=== PATIENT | male | born 1975 | race Caucasian/White ===

== ENCOUNTER 2021-08-10 18:10 | Emergency (ER) | payer OTHER, SELFPAY ==
--- NOTE | ~2021-08-10 | XR_ITS ---
XR ankle RT min 3V 08/10/2021 18:31 INDICATION: Inversion injury of the right ankle with pain PROCEDURE: 4 views right ankle COMPARISON: No prior studies for comparison. FINDINGS: Fracture, dislocation or subluxation is not identified. There are vascular calcifications. The soft tissues appear within normal limits. No foreign bodies are identified. IMPRESSION: 1: NO ACUTE BONE OR JOINT ABNORMALITY IDENTIFIED. Reviewed, dictated and finalized at location A. L WORKER
[2021-08-10 18:22] VITALS: BP 152/84; PULSE 91; RESP 20; TEMP 36.7; O2SAT 98
--- NOTE | 2021-08-10 18:31 | PC.NURSE ---
PT DECLINED ICE AND WHEELCHAIR TO RADIOLOGY
--- NOTE | 2021-08-10 18:32 | ED.GENADULT ---
HPI - General Adult General Chief complaint: Extremity Injury, Lower Stated complaint: right ankle injury Time Seen by Provider: 08/10/21 18:33 Source: patient Mode of arrival: ambulatory Limitations: no limitations History of Present Illness HPI narrative: 45-year-old male patient presents to the [facility] with complaints of right ankle pain. Patient states that he was up on a step stool and fell backwards twisting his right ankle and he thinks he might of had some debris fall on his ankle. Patient states he just wanted to come and get it checked out to make sure it was not broken. Patient states at rest it is okay but when he is up trying to walk on it he has pain to the anterior ankle. Related Data Home Medications Medication Instructions Recorded Confirmed albuterol sulfate 2 puff INHALATION QID PRN 08/10/21 08/10/21 amlodipine 5 mg PO DAILY 08/10/21 08/10/21 budesonide-formoterol [Symbicort] 2 puff INHALATION Q12H 08/10/21 08/10/21 glucagon [Baqsimi] 3 mg INTRANASAL ONCE 08/10/21 08/10/21 montelukast 10 mg PO DAILY 08/10/21 08/10/21 olmesartan-hydrochlorothiazide 1 tablet PO DAILY 08/10/21 08/10/21 olopatadine 2 spray INTRANASAL BID 08/10/21 08/10/21 omeprazole 20 mg PO DAILY 08/10/21 08/10/21 subcutaneous insulin pump [MiniMed 08/10/21 08/10/21 530G Insulin Pump] Allergies Allergy/AdvReac Type Severity Reaction Status Date / Time No Known Allergies Allergy Verified 08/10/21 18:27 Review of Systems Review of Systems: CONSTITUTIONAL: Denies fever, chills, or sweats. EYES: Denies visual changes, redness, or discharge. ENT: Denies rhinorrhea, congestion, sore throat, or otalgia. CARDIOVASCULAR: Denies chest pain, palpitations, or edema. RESPIRATORY: Denies cough or dyspnea. GASTROINTESTINAL: Denies abdominal pain, nausea, vomiting, or diarrhea. GENITOURINARY: Denies dysuria or hematuria. SKIN: Denies rash or itching. MUSCULOSKELETAL: Denies back pain, joint pain, or myalgia. Positive right ankle pain NEUROLOGIC: Denies headache, numbness, or weakness. PSYCHIATRIC: Denies anxiety or depression. [facility] Past Medical History Medical History (Updated 08/10/21 @ 18:50 by LINDSAY Shine) Asthma Diabetes GERD (gastroesophageal reflux disease) Hernia Hypertension Comments At the time of my signature I agree with nursing past medical history, surgical, social, and family history. There is no relevant family history pertinent to the presenting complaint. Exam Narrative: GENERAL: Well-appearing, well-nourished, and in no acute distress. HEAD: Normocephalic, atraumatic. EYES: PERRLA and EOMI. ENT: Nares clear, no rhinorrhea or epistaxis. Mucous membranes moist. NECK: Supple. No lymphadenopathy CHEST: Clear to auscultation. No respiratory distress. HEART: Regular rate and rhythm. No murmur heard. Normal peripheral pulses. ABDOMEN: Soft, nontender, nondistended, normal active bowel sounds. EXTREMITIES: Patient is able to bear weight and ambulate with pain. The R ankle is without obvious asymmetry or deformity when compared to the L ankle. Patient has pain with flex/no pain with extend, invert/kamran. No obvious surface trauma, ecchymosis, soft tissue swelling present to right ankle. No bony tenderness to palpation over the medial or lateral malleolus. Anterior talofibular ligament, posterior talofibular ligament, calcaneofibular ligament nontender and without swelling. No tenderness or deformity of the midfoot or over the proximal fifth metatarsal. Good DP and posterior tibial pulses and sensation to light touch normal. Talar tilt test is negative for ligament laxity to valgus or vargus stress. Negative anterior draw. Peroneal nerve is intact with strong eversion and plantar flexion. SKIN: Warm, dry, no rash. NEURO: No focal deficits. Alert and oriented x3. Course Course Level of Care: Express Care Visit Vital Signs Vital signs: Vital Signs Temperature 36.7 C 08/10/21 18:22 Pulse Rate 91 08/10/21 18:2
== END 2021-08-10 18:51 | disposition home or self-care (01) ==
PROVIDERS: Emergency Provider Nurse Practitioner Family; PCP Internal Medicine Endocrinology, Diabetes & Metabolism
DX: S93.401A Sprain of unspecified ligament of right ankle, initial encounter (principal); W17.89XA Other fall from one level to another, initial encounter; J45.909 Unspecified asthma, uncomplicated; E11.9 Type 2 diabetes mellitus without complications; K21.9 Gastro-esophageal reflux disease without esophagitis; I10 Essential (primary) hypertension
CPT/HCPCS: 73610; 99213; G0463